=== PATIENT | female | born 1995 | race Hispanic/Latino ===

== ENCOUNTER 2019-02-19 19:15 | Inpatient (IN) | payer MEDICAID, OTHER, SELFPAY ==
[2019-02-19] MEDS: Lactated Ringer's 1,000 ML IV SCH (23:23)
[2019-02-19] MEDS ORDERED: Promethazine HCl 25 MG/ML VIAL IM PRN (23:27)
[2019-02-19] MEDS ORDERED: Ibuprofen 800 MG TAB PO PRN (23:27)
[2019-02-19] MEDS ORDERED: NS / Oxytocin 40 units/1000ml 1,000 ML IV PRN (23:27)
[2019-02-19] MEDS ORDERED: Ondansetron PF 4 MG/2 ML Vial IVP PRN (23:27)
[2019-02-19] MEDS ORDERED: hydrALAZINE 20 MG/ML VIAL SLOW IVP PRN (23:27)
[2019-02-19] MEDS ORDERED: Lidocaine 1% (PF) 30 ML VIAL SC PRN (23:27)
[2019-02-19 23:29] VITALS: BMI 30.6
[2019-02-19 23:51] LABS: Hemoglobin 12.5 g/dL (12.0-16.0); Mean Corpuscular HGB CONC 34.1 g/dL (32.0-36.0); Mean Corpuscular Hemoglobin 31.6 pg (27.0-31.0); Mean Corpuscular Volume 92.7 fL (78.0-98.0); Platelet Count 209 thou/uL (130-400); RBC Distribution Width 13.6 % (11.5-14.5); Red Blood Cell (RBC) Count 3.97 mill/uL (4.20-5.40); White Blood Cell (WBC) Count 14.5 thou/uL (4.8-10.8)
[2019-02-19] MEDS ORDERED: Penicillin G Potassium 5 MILL.UNITS in Sodium Chloride 0.9% 100 ML IVPB SCH (23:59)
[2019-02-20 00:28] LABS: HBSAg Index 0.21 S/CO (0-0.99); Hep B Surf Ag Non-Reactive S/CO (NonReactive); Syphilis Antibody Nonreactive (Nonreactive); Syphilis Antibody Index 0.07 S/CO (<1.00 Non-Reactive)
--- NOTE | 2019-02-20 00:42 | PDOC.FPROB ---
FMR OB H&P: HPI - History of Present Illness Chief Complaint: IOL Indentification: G1 History of Present Illness: Patient is a 23 y/o G1 at 39.3W by LMP c/w 11.3W US who presents to L&D for elective induction of labor. Primary Care Physician: Dr. 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 Hx of Abnormal Pap - Surgical History Sx History: None - Social History Social History: Denies x3 - Family History Family History: Mother (HTN) FMR OB H&P: Medications - Current Home Medications: Medication Instructions Recorded Confirmed Type No Known 02/19/19 02/19/19 History Allergies/Adverse Reactions: Allergies Allergy/AdvReac Type Severity Reaction Status Date / Time No Known Allergies Allergy Verified 02/19/19 23:16 FMR OB H&P: ROS - Review of Systems General: reports: fatigue. denies: fever/chills, weight/appetite/sleep changes Eyes: denies: vision changes ENT: denies: nasal congestion, rhinorrhea, frequent nose bleed, sinus pain/ pressure, ringing in ears, sore throat Cardiovascular: denies: chest pain, edema Respiratory: denies: cough, congestion, shortness of breath Gastrointestinal: denies: abdominal pain, nausea, vomiting, diarrhea, constipation, bright red blood, dark black tarry stools Genitourinary (Female): reports: contractions. denies: dysuria, hematuria, vaginal discharge Integumentary: denies: rash, lesions Hematologic/Lymphatic: denies: prolonged or excessive bleeding FMR OB H&P: Vital Signs - Maternal Vital signs: Vital Signs - First Documented Temp Pulse Resp BP 99.5 F 114 H 18 118/72 02/19/19 23:15 02/19/19 23:15 02/19/19 23:15 02/19/19 23:15 - Heart Tones Baseline: 160 Variability: moderate Acceleration: present Deceleration: absent Category: category 1 FMR OB H&P: Physical Exam - Physical Exam General: NAD, awake, alert and oriented HEENT: normocephalic and atraumatic, PERRLA, EOMI, MMM, conjunctiva clear, no scleral icterus, grossly normal vision, grossly normal hearing, normal nasal mucosa, oropharynx clear, good dention Neck: supple, FROM, trachea midline, no LAD Chest: non-tender to palpation Breast: symmetric Heart: RRR, normal S1/S2, no murmurs/rubs/gallops, pulses present, no edema General: CTAB, no respiratory distress, good air movement, no rales/rhonchi, no wheezing, no retractions Abdomen: gravid, non-tender Musculoskeletal: pulses present, FROM in all four extremities, no misalignment/ asymmetry, no atrophy Neurological: sensation to pain,touch and proprioception grossly normal Skin: no rash, capillary refill <2 seconds, no jaundice Lymphatic: no unusual bruising or bleeding, no purpura, no petechia Psychiatric: intact recent and remote memory, good judgement and insight, normal mood and affect FMR OB H&P: Results - Labs Lab results: Laboratory Results - last 24 hr 02/19/19 02/19/19 02/19/19 23:40 23:40 23:40 WBC 14.5 H RBC 3.97 L Hgb 12.5 Hct 36.8 MCV 92.7 MCH 31.6 H MCHC 34.1 RDW 13.6 Plt Count 209 MPV 9.0 Syphilis IgG/IgM Ab Nonreactive Blood Type O POSITIVE Antibody Screen NEGATIVE 02/20/19 00:05 WBC RBC Hgb Hct MCV MCH MCHC RDW Plt Count MPV Syphilis IgG/IgM Ab Blood Type O POSITIVE Antibody Screen FMR OB H&P: A/P - Problem List (1) Intrauterine Current Visit: Yes Status: Acute Code(s): Z34.90 - ENCNTR FOR SUPRVSN OF NORMAL , UNSP, UNSP TRIMESTER Comment: SVE /-3 @ 0530 -Second cytotec placed -Continue Pen G Disposition: Patient is a 23 y/o at 39.3W by LMP c/w 11.3W US currently admitted to L&D for IOL. 1. IOL, SIUP -Patient is in NAD and resting comfortably with multiple family members at bedside - complicated by Chlamydia infection - JAXON on 01/22/19 -GBS(+) w/o Penicillin allergy - proceed with empiric GBS prophylaxis -Maternal VSS -FHTs in the 160s w/ moderate variability, accels and no decels -Cephalic presentation confirmed with bedside US -Patient desires Cytotec -Patient desires epidural -LR @ 125 ml/hr -Proceed with Q4H SVEs following Cytotec placement Dispo: Continue with plan above and monitor maternal / vital signs. Consult anesthesia for epidural placement. Q4H SVEs. Discussion: Date/Time: 02/20/1938 This H&P was discussed with [] and [] who agree with the above documentation and plan. Addendum - Attending - Attending Attestation Date/Time: 02/20/19123 I personally evaluated the patient and discussed the management with Dr. Lim I agree with the History, Examination, Assessment and Plan documented above with any addition or exceptions noted below. 23 yo female at 39.3 wks by LMP/11.3 wk sono here for eIOL. R/B/A discussed. Questions answered. Options related to IOL discussed. Consents sign. Patient would like to proceed with miso IOL. Cat 1 tracing. +FM. No LOF or vaginal bleeding. Treated for CT multiple times in but JAXON negative on 01/22/19. Partner treated. No symptoms. Infant to receive eye ppx. Patient without complications other than CT and GBS carrier. Will start PCN. Will allow eating during latent labor if patient desires. Cephalic by sono. EFW 8 lbs. Continue to monitor closely. Repeat exam in 4 hours or prn. Golden
[2019-02-20] MEDS ORDERED: Misoprostol 100 MCG TAB ONE (01:07)
[2019-02-20] MEDS ORDERED: Misoprostol 100 MCG TAB VAG SCH (01:15)
[2019-02-20] MEDS: Lactated Ringer's 1,000 ML IV SCH ×2 (03:27→23:01)
[2019-02-20] MEDS: Misoprostol 100 MCG TAB VAG SCH ×2 (05:34→17:09)
--- NOTE | 2019-02-20 05:36 | PDOC.LDPN ---
Labor & Delivery Progress Note - Subjective Subjective: comfortable - Objective Vital signs reviewed and normal: yes General: NAD SVE: /3 @ 0530 FHT: category 1, variability present - Assessment (1) Intrauterine Code(s): Z34.90 - ENCNTR FOR SUPRVSN OF NORMAL , UNSP, UNSP TRIMESTER Current Visit: Yes Status: Acute Comment: SVE 3 @ 0530 -Second cytotec placed -Continue Pen G Plan: continue plan of care Addendum - Attending - Attending Attestation Date/Time: 02/20/19928 I personally evaluated the patient and discussed the management with Dr. Velasco I agree with the History, Examination, Assessment and Plan documented above with any addition or exceptions noted below. Cervix still unfavorable. Will continue with miso q 3 to 4 hours. Cat 1 tracing. Ok to eat 2 hours after miso placement if patient desires. Would like epidural for pain control upon request. Repeat exam in 4 hours. Golden
[2019-02-20] MEDS: Penicillin G 2.5 MILL.units 2.5 MILL.UNITS in Premix Bag 1 BAG IVPB SCH ×5 (05:37→23:01)
--- NOTE | 2019-02-20 10:21 | PDOC.LDPN ---
Labor & Delivery Progress Note - Subjective Subjective: comfortable, no concerns, other (not feeling contractions) - Objective Vital signs reviewed and normal: yes General: NAD, resting Uterine fundus: non tender SVE: -3 Dilation: 2 Effacement: 75% (80) Station: -3 FHT: category 1 (accels, baseline 140, no decels), variability present [place] contractions every: 2-3min - Assessment (1) Intrauterine Code(s): Z34.90 - ENCNTR FOR SUPRVSN OF NORMAL , UNSP, UNSP TRIMESTER Current Visit: Yes Status: Acute Comment: SVE @ 0530 -Second cytotec placed -Continue Pen G Plan: continue plan of care -: Patient is a 23 y/o at 39.4W by LMP c/w 11.3W US currently admitted to L&D for IOL. #eIOL, SIUP - Patient is in NAD and resting comfortably with multiple family members at bedside - complicated by Chlamydia infection - JAXON on 01/22/19 - GBS(+) w/o Penicillin allergy - adeq ppx, will cont until delivery - Maternal VSS - Cat 1 strip, FHTs in the 140s w/ moderate variability, accels and no decels - Contractions every 2-3min on toco, not felt by mom - Cephalic presentation confirmed with bedside US at admission - Pt reviewed information and video and states she is going to try to labor without epidural, told she has time to still consider if changes mind - Check , progressed from last check, nick too closely to place cytotec - Will cont to monitor, recheck in 3-4 hours, will place cytotec if contractions begin to space out or consider balloon placement. PCP: MAYRA Santiago IVF: LR @125cc/hr Diet: Ice chips Dispo: Continue with plan above and monitor maternal / vital signs. Q4H SVEs. Addendum - Attending - Attending Attestation Date/Time: 02/20/19 1603 I personally evaluated the patient and discussed the management with Dr. Erickson. I agree with the History, Examination, Assessment and Plan documented above with any addition or exceptions noted below.
--- NOTE | 2019-02-20 13:40 | PDOC.LDPN ---
Labor & Delivery Progress Note - Subjective Subjective: comfortable - Objective Vital signs reviewed and normal: yes General: NAD, resting - Assessment (1) Intrauterine Code(s): Z34.90 - ENCNTR FOR SUPRVSN OF NORMAL , UNSP, UNSP TRIMESTER Current Visit: Yes Status: Acute Comment: CHRIS /-3 @ 0530 -Second cytotec placed -Continue Pen G -: Patient is a 23 y/o at 39.4W by LMP c/w 11.3W US currently admitted to L&D for IOL. #eIOL, SIUP - complicated by Chlamydia infection - JAXON on 01/22/19 - GBS+, penicillin - Cat 1 strip, FHTs in the 140s w/ moderate variability, accels and no decels - Contractions every 2-3min on toco, mom not having much pain - Cephalic presentation confirmed with bedside US at admission - 3.5/-2 @ 1300 cont expectant mgmt PCP: MAYRA Santiago .
[2019-02-20] MEDS ORDERED: NS w/ Oxytocin 10 units 500 ML ONE (17:06)
--- NOTE | 2019-02-20 17:09 | PDOC.LDPN ---
Labor & Delivery Progress Note - Subjective Subjective: comfortable - Assessment (1) Intrauterine Code(s): Z34.90 - ENCNTR FOR SUPRVSN OF NORMAL , UNSP, UNSP TRIMESTER Current Visit: Yes Status: Acute -: Patient is a 23 y/o at 39.4W by LMP c/w 11.3W US currently admitted to L&D for IOL. #eIOL, SIUP - complicated by Chlamydia infection - JAXON on 01/22/19 - GBS+, penicillin, adequate ppx achieved - Cat 1 strip, FHTs in the 140s w/ moderate variability, accels and no decels - Contractions every 2-3min on toco, mom not having much pain - will start pit and titrate to painful contractions cont expectant mgmt PCP: MAYRA Santiago
[2019-02-20] MEDS ORDERED: NS w/ Oxytocin 10 units 500 ML IV SCH (17:15)
--- NOTE | 2019-02-20 22:58 | PDOC.LDPN ---
Labor & Delivery Progress Note - Subjective Subjective: comfortable - Objective Vital signs reviewed and normal: yes General: NAD SVE: /-2 @ 2230 FHT: category 1, variability present [place] contractions every: 2-3 min AROM: clear fluid IUPC placed: yes - Assessment (1) Intrauterine Code(s): Z34.90 - ENCNTR FOR SUPRVSN OF NORMAL , UNSP, UNSP TRIMESTER Current Visit: Yes Status: Acute Plan: continue plan of care, pitocin for augmentation
[2019-02-20] MEDS ORDERED: Fentanyl 4 mcg/Bup 0.1% Cadd 100 ML ONE (23:45)
[2019-02-21] MEDS ORDERED: Ondansetron PF 4 MG/2 ML Vial IVP PRN (00:27)
[2019-02-21] MEDS ORDERED: ePHEDrine/0.9% NaCl/PF SYRINGE 50 mg/10 ml SLOW IVP PRN (00:27)
[2019-02-21] MEDS ORDERED: Naloxone HCl 0.4 mg/ml Vial IVP PRN ×2 (00:27)
[2019-02-21] MEDS ORDERED: diphenhydrAMINE 50 MG/ML VIAL IVP PRN (00:27)
[2019-02-21] MEDS ORDERED: Lactated Ringer's 500 ML IV PRN (00:27)
[2019-02-21] MEDS ORDERED: Acetaminophen 325 MG TAB PO PRN (00:27)
[2019-02-21] MEDS ORDERED: Promethazine HCl 25 MG/ML VIAL IM PRN (00:27)
[2019-02-21] MEDS ORDERED: Communication Order-Pharmacy FS SCH (00:30)
[2019-02-21] MEDS ORDERED: Fentanyl 4 mcg/Bupivacaine 0.1% Cassette 100 ML EPIDURAL SCH (00:30)
[2019-02-21] MEDS: Lactated Ringer's 1,000 ML IV SCH ×2 (02:25→11:57)
[2019-02-21] MEDS: Misoprostol 100 MCG TAB VAG SCH ×3 (02:26→11:57)
[2019-02-21] MEDS: Penicillin G 2.5 MILL.units 2.5 MILL.UNITS in Premix Bag 1 BAG IVPB SCH ×3 (03:50→11:57)
--- NOTE | 2019-02-21 03:53 | PDOC.LDPN ---
Labor & Delivery Progress Note - Subjective Subjective: comfortable - Objective Vital signs reviewed and normal: yes General: NAD, resting, other (Patient states that she cannot feel contractions, but can feel movement) Uterine fundus: non tender SVE: 0335 Dilation: 4.5 cm Effacement: 90% Station: 0 FHT: category 1 [place] contractions every: 4 IUPC placed: yes Resuscitative measures: maternal IV fluids - Assessment (1) Intrauterine Code(s): Z34.90 - ENCNTR FOR SUPRVSN OF NORMAL , UNSP, UNSP TRIMESTER Current Visit: Yes Status: Acute Plan: continue plan of care, pitocin for augmentation -: Patient is a @ 39.5W by LMP c/w 11.3W US currently admitted to L&D for IOL. 1. SIUP -Patient is comfortable and resting in bed with multiple family members present - no acute distress -Maternal VSS -Contractions Q3-4M -Cat 1 strip w/ FHTs in the 140s with moderate variability and accels, no deccels -s/p Cytotec x2 -s/p IUPC - contractions currently ~150 MVUs per 10M window -Pitocin @ 10 mU/m - will continue to increase Q30M as per L&D protocol -LR @ 125 ml/hr -Epidural in place Dispo: Patient appears stable with slow progression of labor. Will continue to monitor maternal and vital signs as well as Pitocin augmentation as per above. Expected LOS > 48H.
--- NOTE | 2019-02-21 05:49 | PDOC.LDPN ---
Labor & Delivery Progress Note - Subjective Subjective: comfortable, no concerns, other (Sleepy) - Objective Vital signs reviewed and normal: yes General: NAD, resting Uterine fundus: non tender SVE: 0545 Dilation: 9.5 cm w/ right-sided anterior cervical lip Effacement: 90% Station: 1+ FHT: category 1, variability present [place] contractions every: Q3-4M IUPC placed: yes Resuscitative measures: maternal IV fluids, maternal position change, other ( Peanut Ball) - Assessment (1) Intrauterine Code(s): Z34.90 - ENCNTR FOR SUPRVSN OF NORMAL , UNSP, UNSP TRIMESTER Current Visit: Yes Status: Acute Plan: continue plan of care, pitocin for augmentation -: Patient is a @ 39.5W by LMP c/w 11.3W US currently admitted to L&D for IOL. 1. SIUP -Patient is comfortable and resting in bed with multiple family members present - no acute distress -Patient had mild tremulousness - most likely 2/2 Pitocin infusion -Chlamydia positive - JAXON on 01/22/19 -GBS positive - adequate empiric antibiotic treatment achieved -Maternal VSS -Contractions Q3-4M -Cat 1 strip w/ FHTs in the 140s with moderate variability and accels, no deccels -s/p Cytotec x2 -s/p IUPC - contractions currently ~150 MVUs per 10M window -Pitocin @ 16 mU/m - will continue to increase Q30M as per L&D protocol -LR @ 125 ml/hr -Epidural in place Dispo: Patient appears stable with continued progression of labor. Will continue to monitor maternal and vital signs as well as Pitocin augmentation as per above. Expected LOS > 48H.
[2019-02-21] MEDS ORDERED: Lidocaine 1% (PF) 30 ML VIAL ONE (05:54)
--- NOTE | 2019-02-21 08:41 | PDOC.LDPN ---
Labor & Delivery Progress Note - Subjective Subjective: comfortable, vaginal pressure - Objective Vital signs reviewed and normal: yes General: NAD - Assessment (1) Intrauterine Code(s): Z34.90 - ENCNTR FOR SUPRVSN OF NORMAL , UNSP, UNSP TRIMESTER Current Visit: Yes Status: Acute -: Patient is a @ 39.5W by LMP c/w 11.3W US currently admitted to L&D for IOL. 1. SIUP -Chlamydia positive - JAXON on 01/22/19 -GBS positive - adequate empiric antibiotic treatment achieved -Contractions Q3 -Epidural in place -Cat 1 strip w/ FHTs in the 140s with moderate variability and accels, early decels 10/100/+1 started pushing at 0700, G1w/ Epidural, thus 3-4 hours is acceptable for second stage
[2019-02-21] MEDS ORDERED: Fentanyl 4 mcg/Bup 0.1% Cadd 100 ML ONE (08:58)
[2019-02-21] MEDS ORDERED: Carboprost 250 MCG/ML AMP ONE (09:53)
[2019-02-21] MEDS ORDERED: Misoprostol 200 MCG TAB ONE (09:53)
--- NOTE | 2019-02-21 10:57 | PDOC.OPDEL ---
OB Operative/Delivery Note Delivery Dr/Surgeon: Billie/Alysa Pre-Delivery Diagnosis: elective induction Procedure/Post Delivery Dx: spontaneous vaginal delivery Weeks gestation: 39 (39.5) Anesthesia: epidural - Findings A Sex: female - 1 min: 7 - 5 min: 9 - Additional Findings/Plan Placenta delivered: spontaneous Repaired Obstetrical Laceration: episiotomy Estimated blood loss: 300 Compilations/Other Findings: Delivering Physician: Cyrus Lopez Attending: Alysa Procedure: Spontaneous Vaginal Delivery, Episiotomy Anesthesia: epidural, 1% lidocaine local for Repair EBL: 300ml QBL: Pending at time of dictation Pre-op Diagnosis: 1. Term intrauterine in labor 2. GBS positive mother with adequate ppx 3. H/o Maternal Chlamydia with negative JAXON Post-op Diagnosis: 1. Term intrauterine , delivered 2. Episiotomy with repair 3. GBS positive mother with adequate ppx 4. H/o Maternal Chlamydia with negative JAXON Indications: A 23y/o female presents to L&D for elective induction of labor. Delivery Note: This is 23yo F @ 39.5 wks who delivered a viable F at 1010 on 02/21/19. After accomplishing complete dilation, mother pushed for 2- 3 hours prior to successful delivery. An episiotomy was cut due to bradycardia and limited pernineal space immediately prior to delivery. A vigorous female was then delivered over the episiotomy in the occipitoposterior position. Anterior Shoulder and then remainder of the body delivered. Nuchal cord x1 reduced at the perineum. The head was held down and mouth and nares were bulb suctioned. Cord clamped after delayed cord clamping and cut and cord blood collected. Placenta delivered intact [place] presentation with a 3 vessel cord noted. Fundal massage was performed and the fundus was firm. The cervix and vagina were inspected. No extension of the episiotomy was found. Episiotomy was then repaired with 3-0 Vicryl in the usual fashion with good approximation and hemostasis after a local anesthetic of 1% Lidocaine was injected at site. initially required additional suctioning but responded well. Infant was then placed on mother for [id number] time. Apgars were 7/9 at 1 & 5 minutes, respectively. Patient tolerated delivery well and went to after routine recovery/care. QBL was pending at time of dictation. Post delivery plan: routine recovery Addendum - Attending - Attending Attestation Date/Time: 02/21/19 0024 I was present, assisted and supervised the of a viable female in over MLE to this 23 yo @39.5 weeks. OP position. Apgars 7/9. Nuchal cord x 1 redicued on the perineum. Shoulders and body delivered easily. Placenta deliver spontaneously and intact; 3V cord. MLE repaired in usual fashion with 3- 0 vicryl. Good hemostasis. UFY=050 mL. Infant and mother in stable condition.
[2019-02-21] MEDS ORDERED: hydrALAZINE 20 MG/ML VIAL SLOW IVP PRN (11:59)
[2019-02-21] MEDS ORDERED: NS / Oxytocin 40 units/1000ml 1,000 ML IV SCH (11:59)
[2019-02-21] MEDS ORDERED: Lanolin Ointment 7 GM TUBE TOP PRN (11:59)
[2019-02-21] MEDS ORDERED: Milk Of Magnesia 30 ML UDCUP PO PRN (11:59)
[2019-02-21] MEDS ORDERED: Bisacodyl 10 MG SUPP PR PRN (11:59)
[2019-02-21] MEDS: Ibuprofen 800 MG TAB PO SCH (14:48)
[2019-02-21] MEDS: Ferrous Sulfate 325 MG TAB PO SCH (18:15)
[2019-02-21] MEDS ORDERED: Benzocaine-Menthol 82.5 ML CAN TOP PRN (21:38)
[2019-02-21] MEDS ORDERED: Lactated Ringer's 500 ML IV SCH (21:45)
[2019-02-22 05:38] LABS: Hemoglobin 8.8 g/dL (12.0-16.0); Mean Corpuscular HGB CONC 33.9 g/dL (32.0-36.0); Mean Corpuscular Volume 94.4 fL (78.0-98.0); Mean Platelet Volume 8.4 fL (7.4-10.4); Platelet Count 164 thou/uL (130-400); RBC Distribution Width 13.8 % (11.5-14.5); Red Blood Cell (RBC) Count 2.74 mill/uL (4.20-5.40); White Blood Cell (WBC) Count 16.4 thou/uL (4.8-10.8)
[2019-02-22] MEDS: Docusate Calcium (SURFAK) 240 MG CAP PO SCH ×3 (08:26→21:51)
[2019-02-22] MEDS: Ibuprofen 800 MG TAB PO SCH ×3 (08:27→21:51)
[2019-02-22] MEDS: Ferrous Sulfate 325 MG TAB PO SCH ×2 (08:27→18:12)
[2019-02-22] MEDS ORDERED: Adacel (T-DAP) 0.5 ML SYRINGE IM ONE (09:00)
--- NOTE | 2019-02-22 09:00 | PDOC.PP ---
Post Progress Note Post Day #: 1 Subjective: Pt reports doing well this morning. Reports having some pain in the vaginal region. Reports pain controlled with pain medication. Denies any fever or chills. Denies any chest pain or SOB. Pt denies any leg swelling. 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 No sign of bleeidng. No drainage or swelling noted Psychiatric: A&Ox3, normal affect Result Diagrams: 02/22/19 05:18 Additional Labs: Post Labs Blood Type O POSITIVE 02/20/19 00:05 Hep Bs Antigen Non-Reactive S/CO (NonReactive) 02/19/19 23:40 (1) Positive GBS test Code(s): B95.1 - STREPTOCOCCUS, GROUP B, CAUSING DISEASES CLASSD ELSWHR Status : Acute (2) Intrauterine Code(s): Z34.90 - ENCNTR FOR SUPRVSN OF NORMAL , UNSP, UNSP TRIMESTER Status: Acute - Assessment/Plan 23 yo ->1 @ 39.5 weeks delivered JULIO Kruse via on 02/21 @ 10:10 -Routine pp care -Pt reports light lochia. -Pt pain controlled with current regimen. - with some concerns- consulted Sinus Tachy -Pt still tachycardic this AM. -Received fluid bolus last night with no improvement -consider EKG GBS+ -Adequately tx during labor. Addendum - Attending - Attending Attestation Date/Time: 02/22/19 2792 I personally evaluated the patient and discussed the management with Dr. Santiago I agree with the History, Examination, Assessment and Plan documented above with any addition or exceptions noted below - Patient without complaints. Afebrile BP 113/56 P109. A/P: PPD#1 s/p - Continue current care. 2) Tachycardia- developed post epidural. Improved after fluid bolus. Suspect degree of dehydration along with anemia. Will check orthostatic vitals and give additional fluid bolus.
[2019-02-22] MEDS: Prenatal Vitamin 1 TAB PO SCH (09:27)
[2019-02-22] MEDS ORDERED: Lactated Ringer's 1,000 ML IV SCH (09:30)
[2019-02-22] MEDS ORDERED: Sodium Chloride 0.9% 10 ML ONE (10:11)
--- NOTE | 2019-02-22 19:15 | PDOC.BPN ---
- Brief Progress Note tachycardia improved to low 100s after bolus patient asymptomatic, no palpitations or light headedness EKG shows sinus tach repeat H/H in AM
[2019-02-23] MEDS: Ibuprofen 800 MG TAB PO SCH (05:20)
[2019-02-23 06:19] LABS: Hemoglobin 8.5 g/dL (12.0-16.0)
[2019-02-23 08:32] VITALS: BP 109/58; TEMP 97.8
[2019-02-23] MEDS: Prenatal Vitamin 1 TAB PO SCH (08:33)
[2019-02-23] MEDS: Ferrous Sulfate 325 MG TAB PO SCH (08:33)
[2019-02-23] MEDS: Docusate Calcium (SURFAK) 240 MG CAP PO SCH (08:33)
--- NOTE | 2019-02-23 11:38 | PDOC.PP ---
Post Progress Note Post Day #: 2 Subjective: Pt reports doing well. Denies any chest pain or SOB. Denies any swelling. Reports some vaginal pain that comes about when walking. Reports light lochia. Denies any fever or chills. PO intake tolerated: yes Flatus: yes Ambulation: yes Vital Signs (12 hours) Temp Pulse Resp BP Pulse Ox 02/23/19 08:32 97.8 F 90 18 109/58 L 98 Weight Weight 73.482 kg - Physical Examination General: NAD Cardiovascular: no m/r/g, RRR Respiratory: clear to auscultation bilaterally, non-labored breathing Abdominal: + bowel sounds, lochia (reports as light), no distention, appropriately TTP Extremities: negative homans (B) Perineum: Intact. No drainage. Neurological: no gross focal deficits Psychiatric: A&Ox3, normal affect Result Diagrams: 02/23/19 05:49 Additional Labs: Post Labs Blood Type O POSITIVE 02/20/19 00:05 Hep Bs Antigen Non-Reactive S/CO (NonReactive) 02/19/19 23:40 (1) Positive GBS test Code(s): B95.1 - STREPTOCOCCUS, GROUP B, CAUSING DISEASES CLASSD ELSWHR Status : Acute (2) Intrauterine Code(s): Z34.90 - ENCNTR FOR SUPRVSN OF NORMAL , UNSP, UNSP TRIMESTER Status: Acute - Assessment/Plan 23 yo ->1 @ 39.5 weeks delivered JULIO Kruse via on 02/21 @ 10:10 -Routine pp care -Pt reports light lochia. -Pt pain up with moving. Will schedule pain regimen as she was not getting prns as often. - with some concerns- consulted. Seems likely pt will likely bottle feed. Sinus Tachy -Pt still mild tachycardic. Improved with fluid bolus. -likely related the being fluid down. Pt Asx. GBS+ -Adequately tx during labor. Addendum - Attending - Attending Attestation Date/Time: 02/23/19 679 I personally evaluated the patient and discussed the management with Dr. Santiago I agree with the History, Examination, Assessment and Plan documented above with any addition or exceptions noted below- Patient without complaints. Afebrile VSS. A/P: 1) PPD#2 s/p - doing well. Plan to d/c home today.
--- NOTE | 2019-02-25 05:45 | PQF ---
BENNY BENITEZ Amanda MD [id number] CLINICAL DOCUMENTATION CLARIFICATION FORM: POST DISCHARGE Addendum to original discharge summary date: ____ Late entry note date: __ DATE: 02/25/2019 ATTN:Eunice Acuna MD Please exercise your independent, professional judgment in responding to the clarification form. Clinical indicators are provided on the bottom of this form for your review Please check appropriate box(s): [x ] Acute blood loss anemia [ ] Post-op anemia related to acute blood loss [ ] Chronic Anemia [ x ] Other diagnosis ____dehydration [ ] Unable to determine In addition, please specify: Present on Admission (POA): [x ] Yes - but worsened after delivery [ ] No [ ] Unable to determine For continuity of documentation, please document condition throughout progress notes and discharge summary. Thank You. CLINICAL INDICATORS - SIGNS / SYMPTOMS / LABS HGB 12.5 on 02/19 , 8.8 on 02/22 and 8.5 on 02/23 - Documented in Laboratory HCT 36.8 on 02/19 ,25.8 on 02/22 and 25.6 on 02/23 - Documented in Laboratory Pulse rate 114 on 02/19 , 118 on 02/21 and 106 on 02/22 - Documented in Vitrals Sign BP 113/56 on 02/22 and 109/58 on02/23 - Documented in Vitrals Sign RISK FACTORS Suspect degree of dehydration along with Anemia - Documented in PNs on 02/22 by Jack DELA CRUZ GBS+ TREATMENTS: Ferrous sulfate 325 mg PO BID - Medication report (This form is maintained as a part of the permanent medical record) 2014 [employer]. All Rights Reserved [email or web address] [not [email or web address]] [email or web address]
== END 2019-02-23 11:36 | disposition home or self-care (01) | DRG 806 ==
LOC: L&D 22:45 → 3SW 02-21 13:28
PROVIDERS: ADMIT Student in an Organized Health Care Education/Training Program; ATTEND Student in an Organized Health Care Education/Training Program
PROC: 10907ZC Drainage of Amniotic Fluid, Therapeutic from Products of Conception, Via Natural or Artificial Opening (ICD-10-PCS; principal; 2019-02-21)
PROC: 10E0XZZ Delivery of Products of Conception, External Approach (ICD-10-PCS; 2019-02-21)
PROC: 10H07YZ Insertion of Other Device into Products of Conception, Via Natural or Artificial Opening (ICD-10-PCS; 2019-02-21)
PROC: 3E033VJ Introduction of Other Hormone into Peripheral Vein, Percutaneous Approach (ICD-10-PCS; 2019-02-21)
PROC: 0W8NXZZ Division of Female Perineum, External Approach (ICD-10-PCS; 2019-02-21)
DX: O99.824 Streptococcus B carrier state complicating childbirth (principal); D62 Acute posthemorrhagic anemia; Z37.0 Single live birth; Z3A.39 39 weeks gestation of pregnancy; O69.81X0 Labor and delivery complicated by cord around neck, without compression, not applicable or unspecified; R00.0 Tachycardia, unspecified; O75.4 Other complications of obstetric surgery and procedures; O90.81 Anemia of the puerperium; E86.0 Dehydration
CPT/HCPCS: 36415; 51702; 85014; 85018; 85027; 86780; 86850; 86900; 86901; 87340; 93005; 93010; J2001; J2540; J2590; J3490; J7120

== ENCOUNTER 2024-02-06 23:06 | Emergency (ER) | payer BC, SELFPAY ==
[2024-02-07] MEDS ORDERED: Acetaminophen 500 MG TAB ONE (00:07)
[2024-02-07 00:27] LABS: #Basophils 0.04 10x3/uL (0.0-0.2); %Basophils 0.4 % (0.0-1.0); %Eosinophils 0.7 % (0.0-10.0); %Lymphocytes 12.2 % (21.0-51.0); %Neutrophils 79.5 % (42.0-75.0); Hematocrit 41.4 % (36.0-47.0); Hemoglobin 14.5 g/dL (12.0-16.0); Mean Corpuscular Hemoglobin 31.6 pg (27.0-31.0); Mean Corpuscular Volume 90.2 fL (78.0-98.0); Mean Platelet Volume 10.3 fL (7.4-10.4); Platelet Count 265 10x3/uL (130-400); RBC Distribution Width 12.4 % (11.5-14.5); Red Blood Cell (RBC) Count 4.59 mill/uL (4.20-5.40)
[2024-02-07 00:40] LABS: ALT (SGPT) 14 U/L (8-55); AST (SGOT) 14 U/L (5-34); Albumin 4.3 g/dL (3.5-5.0); Alkaline Phosphatase 69 U/L (40-110); Anion Gap 15 mmol/L (10-20); BUN (Urea Nitrogen) 9 mg/dL (7.0-18.7); Bilirubin, Total 0.5 mg/dL (0.2-1.2); Calc. Creatinine Clearance 0 mL/min (70-130); Carbon Dioxide 22 mmol/L (22-29); Chloride 107 mmol/L (98-107); Estimated GFR 123; Globulin 3.5 g/dL (2.4-3.5); Glucose 119 mg/dL (70-105); Potassium 3.5 mmol/L (3.5-5.1); Protein, Total 7.8 g/dL (6.0-8.3); Sodium 140 mmol/L (136-145)
[2024-02-07 00:45] LABS: Troponin I Less than 0.010 ng/mL (< 0.028)
[2024-02-07 01:03] LABS: BHCG - Serum Negative (NEGATIVE); Pregs Control Background? CLEAR/WHITE (CLR/WHITE); Pregs Control Bar Appear? YES (CONTROL BAR)
[2024-02-07 01:56] LABS: Amphetamine Not Detected (NotDetected); Bacteria/HPF None Seen HPF (None Seen); Barbiturates Screen Not Detected (NotDetected); Benzodiazepine Screen Not Detected (NotDetected); Bilirubin Negative (Negative); Blood, Urine Negative (Negative); CAUTI Indications for Culture Dysuria,urgency,freq; Clarity Clear (Clear); Cocaine Metabolite Screen Not Detected (NotDetected); Glucose, Urine (Dipstick) Normal (Negative); Ketone, Urine 10 mg/dL (Negative); Leukocyte Negative Leu/uL (Negative); Methadone Not Detected (NotDetected); Methamphetamine Not Detected (NotDetected); Nitrite Negative (Negative); Opiate Screen Not Detected (NotDetected); Oxycodone Screen Not Detected (NotDetected); Phencyclidine (PCP) Not Detected (NotDetected); Protein, Urine (Dipstick) Negative (Neg-Trace); RBC/HPF 0-3 HPF (0-3); Squamous Epithelial 0-3 HPF (0-3); THC/Cannabinoid Screen Not Detected (NotDetected); Tricyclic Screen Not Detected (NotDetected); Urobilinogen Normal mg/dL (Less than 2); WBC/HPF 0-3 HPF (0-3); pH, Urine 6.5 (5.0-9.0)
[2024-02-07 01:57] LABS: Specific Gravity, Urine 1.004 (1.002-1.036)
[2024-02-07 01:58] LABS: Urine Culture Reflex No No
[2024-02-07 02:28] LABS: Acetaminophen 11 mcg/mL (Less than 10); Alcohol Less than 10.0 mg/dL (Less than 10); Salicylate Less than 8.0 mg/dL (Less than 8.0)
== END 2024-02-07 05:13 | disposition home or self-care (01) ==
LOC: ERS 23:06
DX: J06.9 Acute upper respiratory infection, unspecified (principal)
CPT/HCPCS: 36415; 71045; 71275; 80053; 80306; 80307; 81001; 83605; 84443; 84484; 84703; 85025; 85379; 87081; 87428; 87430; 93005